=== PATIENT | male | born 1930 | race Caucasian/White ===

== ENCOUNTER 2020-02-17 13:51 | Observation (INO) ==
--- NOTE | 2020-02-17 14:39 | ERNOTE ---
Dyspnea - General Presenting Symptoms: shortness of breath Time Seen by Provider: 02/17/20 14:28 Source: patient, family Exam Limitations: no limitations - Immun/Allergies/Home Medications Immunizations: IMMUNIZATION HX Immunizations Up to Date Yes History of Influenza Vaccine Yes Hx Pneumococcal Vaccination Yes Allergies/Adverse Reactions: Allergies meperidine HCl [From Demerol] Adverse Reaction (Mild, Verified 02/17/20 14:10) Nausea Home Medications: HOME MEDICATIONS Tamsulosin HCl [Flomax] 0.4 mg PO QPM 12/25/14 [Last Taken Unknown] Acetaminophen [Tylenol] 650 mg PO Q4H PRN 06/26/17 [Last Taken Unknown] Aspirin [Children's Aspirin] 81 mg PO DAILY 06/26/17 [Last Taken Unknown] Beta-Carotene(A) W-C , E/Min [Ocuvite] 1 tab PO DAILY 06/26/17 [Last Taken Unknown] Furosemide [Lasix] 40 mg PO DAILY 08/15/17 [Last Taken Unknown] Lisinopril 2.5 mg PO DAILY 08/15/17 [Last Taken Unknown] Fexofenadine HCl 180 mg PO DAILY 11/01/19 [Last Taken Unknown] Metoprolol Tartrate [Lopressor] 25 mg PO DAILY 11/01/19 [Last Taken Unknown] Albuterol Sulfate [Proventil Hfa] 6.7 gm INHALATION DAILY 02/17/20 [Last Taken Unknown] Amoxicillin 1,000 mg PO TID 02/17/20 [Last Taken Unknown] Azithromycin 500 mg PO DAILY 02/17/20 [Last Taken Unknown] - History of Present Illness Narrative: Patient presents today for weakness and shortness of breath. He states he was in [facility] for for 5 days and was released 2 days ago but he believes that they released him too early. He is not sure of the details of his diagnosis or what they did to treat him. 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 Absent: fever ENT: Absent: nose congestion, nasal drainage Respiratory: Present: shortness of breath. Absent: cough Gastrointestinal/Abdominal: Absent: nausea, vomiting Medical History (Last Reviewed 02/17/20 @ 14:37 by Bo Flores DO) Afib Heart attack Hypertension Surgical History: Surgical History (Last Reviewed 02/17/20 @ 14:37 by Bo Flores DO) Hx of aortic valve replacement Hx of heart bypass surgery Family History: Family History (Last Updated 02/17/20 @ 15:24 by Nadira Sheppard RN) Other No pertinent family history Social History: (Last Reviewed 02/17/20 @ 14:37 by Bo Flores DO) Tobacco: Smoking Status: Former smoker Alcohol: alcohol intake: never Substance Use: substance use type: does not use Physical Exam - Physical Exam General Appearance: Present: wd/wn, alert, no apparent distress Head Exam: Present: normal inspection, no evidence of injury Eye Exam: Normal inspection: bilateral Neck: Present: normal inspection, nontender, supple Respiratory: Present: no respiratory distress, no accessory muscle use, lungs clear Cardiovascular/Chest: Present: irregularly irregular, systolic murmur - 3/5 Gastrointestinal/Abdominal: Present: normal bowel sounds, nontender, nondistended Back Exam: Present: normal inspection, normal range of motion Extremity Exam: Present: normal inspection, normal range of motion, pedal edema - mild Neurological Exam: Present: alert, normal mood/affect Skin Exam: Present: normal color, warm/dry Progress - Results and Orders Patient's Lab Results:: I have reviewed the patient's lab results. Results and Orders: Laboratory Tests 02/17/20 02/17/20 14:45 14:45 WBC 9.1 Hgb 11.3 L Hct 35.1 L Plt Count 363 Neutrophils % 75.5 H Sodium 135 Potassium 4.3 Chloride 102 Carbon Dioxide 23.0 L Anion Gap 14.3 H BUN 16 Creatinine 1.42 H Random Glucose 120 H Calcium 9.0 Total Bilirubin 0.5 AST 55 H ALT 48 Alkaline Phosphatase 153 Troponin I Less than 0.017 B-Natriuretic Peptide 12175 H Laboratory Tests 02/17/20 16:25 SARS-CoV-2 (PCR) Not detected - Vital Signs Patient's Vital Signs:: I have reviewed the patient's vital signs. Vital Signs: Vital Signs 02/17/20 13:55 Temperature 37.5 C Pulse Rate 90 Respiratory Rate 18 Blood Pressure 127/63 O2 Sat by Pulse Oximetry 96 - EKG EKG #1 EKG: NSR, premature ventricular contraction - frequent, nonspecific ST T wave changes, LVH EKG read: Interp. by me - X-Ray X-Ray #1 X-Ray: chest Interpretation: Reviewed by me X-ray Comments: IMPRESSION: 1. POOR INSPIRATION. 2. ENLARGED CARDIAC SILHOUETTE WITH VALVULAR PROSTHESIS. 3. CONSOLIDATION IN THE RIGHT MID TO LOWER LUNG ZONE AND LEFT LUNG BASE; ATELECTASIS VERSUS PNEUMONIA. Electronically signed by Jona Licea M.D.. - Progress/Reassessment Chief Complaint: Dyspnea Progress Note-Subjective: 02/17/20 16:[address] Sage he agrees with admission for IV diuresis. I spoke with the patient and his daughter and they agree with admission. Departure Clinical Impression: CHF (congestive heart failure) Qualifiers: Heart failure type: diastolic Heart failure chronicity: acute on chronic Qualified Code(s): I50.33 - Acute on chronic diastolic (congestive) heart failure - Departure Disposition: Still a patient Condition: Fair
[2020-02-17 14:54] LABS: Hematocrit 35.1 % (42.0-52.0); Hemoglobin 11.3 gm/dL (13.5-18.0); Mean Cell Volume 93.9 fl (78-100); Mean Corpuscular Hemoglobin 30.2 pg (27-31); Mean Corpuscular Hgb Conc 32.2 g/dl (32-36); Mean Platelet Volume 8.4 fl (8-11.3); Neutrophil # 6.8 K/mm3 (1.3-6.0); Neutrophil % 75.5 % (42-75.0); Platelet Count 363 K/mm3 (150-450); Red Blood Count 3.74 M/mm3 (4.7-6.0); Red Cell Distribution Width 13.2 % (11.5-14.0); White Blood Count 9.1 K/mm3 (4.0-10.5)
[2020-02-17 15:17] LABS: ALT 48 U/L (19-67); AST 55 U/L (0-48); Albumin * 2.8 gm/dl (3.4-5.0); Alkaline Phosphatase * 153 U/L (50-170); Anion Gap 14.3 mmol/L (6.8-13.8); BNP * 15079 pg/mL (5-650); BUN/Creatinine Ratio 11.3 (9.0-21.6); Bilirubin, Total 0.5 mg/dL (0.0-1.1); Blood Urea Nitrogen 16 mg/dL (6-23); Ca. Corrected For Albumin 9.6 mg/dL (8.4-10.2); Chloride 102 mmol/L (97-106); Glucose * 120 mg/dL (70-110); Potassium 4.3 mmol/L (3.4-4.6); Sodium 135 mmol/L (132-142)
[2020-02-17 15:23] LABS: Troponin I Less than 0.017 ng/mL (0.00-0.10)
[2020-02-17] MEDS ORDERED: FUROSEMIDE 10 MG/ML VIAL IV ONE (15:48)
[2020-02-18] MEDS ORDERED: FUROSEMIDE 10 MG/ML VIAL IV ONE (06:55)
[2020-02-18] MEDS ORDERED: ACETAMINOPHEN 325 MG TABLET PO PRN (06:55)
[2020-02-18] MEDS ORDERED: ALBUTEROL SULFATE 2.5 MG/0.5 ML VIAL.NEB IH PRN (06:55)
[2020-02-18] MEDS ORDERED: BETA-CAROTENE(A) W-C , E/MIN 1 TAB TABLET PO SCH (09:00)
[2020-02-18] MEDS ORDERED: AZITHROMYCIN 250 MG TABLET PO SCH (09:00)
[2020-02-18] MEDS ORDERED: ASPIRIN 81 MG TAB.CHEW PO SCH (09:00)
[2020-02-18] MEDS ORDERED: CEFDINIR 300 MG CAPSULE PO SCH (09:00)
[2020-02-18] MEDS ORDERED: LISINOPRIL 2.5 MG TABLET PO SCH (09:00)
[2020-02-18] MEDS ORDERED: LORATADINE 10 MG TABLET PO SCH (09:00)
[2020-02-18] MEDS ORDERED: METOPROLOL TARTRATE 25 MG TABLET PO SCH (09:00)
--- NOTE | 2020-02-18 10:20 | HP ---
Chief Complaint - Chief Complaint Date of Service: 02/18/20 Time of Service: 06:45 Chief Complaint: Shortness of breath History of Present Illness: Serg is an 89 yo male that was recently treated for pneumonia at [facility]. He was discharged a couple days ago but has been getting more short of breath. He denies fever. He reports he has still been taking his antibiotics he was given at discharge. In the ER chest xray showed CONSOLIDATION IN THE RIGHT MID TO LOWER LUNG ZONE AND LEFT LUNG BASE; ATELECTASIS VERSUS PNEUMONIA. His BNP was elevated at 15,000. His vitals were overall normal without hypoxia. WBC is normal. He was given 40mg IV lasix in the ER and reports he has been urinating more than usual overnight. Medical History (Last Reviewed 02/17/20 @ 19:34 by Carlita Bowling RN) Afib Heart attack Hypertension Surgical History: Surgical History (Last Reviewed 02/17/20 @ 19:34 by Carlita Bowling RN) Hx of aortic valve replacement Hx of heart bypass surgery Family History: Family History (Last Reviewed 02/17/20 @ 19:34 by Carlita Bowling RN) Other No pertinent family history Social History: (Last Reviewed 02/17/20 @ 19:34 by Carlita Bowling RN) Tobacco: Smoking Status: Former smoker Alcohol: alcohol intake: never Substance Use: substance use type: does not use Review Of Systems (GEN) - Review of Systems Generalized/Overall Review: Present: Weakness, Fatigue. Absent: Chills, Fever Respiratory: Present: Cough, Shortness of Breath Cardiac: Present: Edema. Absent: Chest Pain, Palpitations Abdominal: Absent: Nausea, Vomiting Genitourinary: Absent: Burning, Frequency Immunizations: IMMUNIZATION HX Immunizations Up to Date Yes History of Influenza Vaccine Yes Hx Pneumococcal Vaccination Yes Allergies/Adverse Reactions: Allergies Allergy/AdvReac Type Severity Reaction Status Date / Time meperidine HCl [From Demerol] AdvReac Mild Nausea Verified 02/17/20 14:10 Home Medications: HOME MEDICATIONS Tamsulosin HCl [Flomax] 0.4 mg PO QPM 12/25/14 [Last Taken Unknown] Acetaminophen [Tylenol] 650 mg PO Q4H PRN 06/26/17 [Last Taken Unknown] Aspirin [Children's Aspirin] 81 mg PO DAILY 06/26/17 [Last Taken Unknown] Furosemide [Lasix] 40 mg PO DAILY 05/02/18 [Last Taken Unknown] Lisinopril 2.5 mg PO DAILY 08/15/17 [Last Taken Unknown] Fexofenadine HCl 180 mg PO DAILY 11/01/19 [Last Taken Unknown] Metoprolol Tartrate [Lopressor] 25 mg PO DAILY 11/01/19 [Last Taken Unknown] Albuterol Sulfate [Proventil Hfa] 6.7 gm INHALATION DAILY 02/17/20 [Last Taken Unknown] Amoxicillin 1,000 mg PO TID 02/17/20 [Last Taken Unknown] Azithromycin 500 mg PO DAILY 02/17/20 [Last Taken Unknown] Beta-Carotene(A) W-C , E/Min [Ocuvite] 1 cap PO DAILY 02/17/20 [Last Taken Unknown] Pantoprazole Sodium 40 mg PO HS 02/17/20 [Last Taken Unknown] Exam - Exam Vital Signs: Vital Signs - Last Taken Temp 37.4 C 02/18/20 06:00 Pulse 93 02/18/20 09:11 Resp 20 02/18/20 06:00 BP 128/61 02/18/20 09:11 Pulse Ox 93 02/18/20 06:00 Constitutional: Present: Alert, Oriented x3, Cooperative ENT Exam: Present: hearing grossly normal Eye Exam: bilateral eye: normal inspection Respiratory: Present: lungs clear, normal breath sounds, no respiratory distress Cardiovascular/Chest: Present: regular rate, rhythm, edema - 1+ lower extremity edema Peripheral Pulses: radial (R): 2+, radial (L): 2+ Abdomen: Present: Normal bowel sounds, soft, nontender, nondistended, no rebound tenderness Skin Exam: Present: normal color, warm/dry, no cyanosis Appearance: Present: appropriate appearance, appropriate insight Eye contact: Present: cooperative, good eye contact, normal speech Diagnostic Studies: Abnormal Lab Results 02/17/20 02/17/20 Range/Units 14:45 14:45 RBC 3.74 L (4.7-6.0) M/mm3 Hgb 11.3 L (13.5-18.0) gm/dL Hct 35.1 L (42.0-52.0) % Immature Gran % (Auto) 0.90 H (0.001-0.429) % Immature Gran # (Auto) 0.08 H (0.000-0.0310) K/mm3 Neutrophils % 75.5 H (42-75.0) % Lymphocytes % 12.0 L (20-51) % Neutrophils # 6.8 H (1.3-6.0) K/mm3 Lymphocytes # 1.09 L (1.5-3.5) k/mm3 Carbon Dioxide 23.0 L (24-32.6) mmol/L Anion Gap 14.3 H (6.8-13.8) mmol/L Creatinine 1.42 H (0.4-1.4) mg/dL Est GFR (Non-Af Amer) 50 L D (60-130) mL/min Random Glucose 120 H (70-110) mg/dL AST 55 H (0-48) U/L B-Natriuretic Peptide 54551 H (5-650) pg/mL Albumin 2.8 L (3.4-5.0) gm/dl Laboratory Results WBC 9.1 K/mm3 (4.0-10.5) 02/17/20 14:45 RBC 3.74 M/mm3 (4.7-6.0) L 02/17/20 14:45 Hgb 11.3 gm/dL (13.5-18.0) L 02/17/20 14:45 Hct 35.1 % (42.0-52.0) L 02/17/20 14:45 MCV 93.9 fl (78-100) 02/17/20 14:45 MCH 30.2 pg (27-31) 02/17/20 14:45 MCHC 32.2 g/dl (32-36) 02/17/20 14:45 RDW 13.2 % (11.5-14.0) 02/17/20 14:45 Plt Count 363 K/mm3 (150-450) 02/17/20 14:45 MPV 8.4 fl (8-11.3) 02/17/20 14:45 Immature Gran % (Auto) 0.90 % (0.001-0.429) H 02/17/20 14:45 Immature Gran # (Auto) 0.08 K/mm3 (0.000-0.0310) H 02/17/20 14:45 Neutrophils % 75.5 % (42-75.0) H 02/17/20 14:45 Lymphocytes % 12.0 % (20-51) L 02/17/20 14:45 Monocytes % 8.4 % (0.0-9) 02/17/20 14:45 Eosinophils % 2.6 % (0.0-3.0) 02/17/20 14:45 Basophils % 0.6 % (0.0-1.0) 02/17/20 14:45 Nucleated RBC % 0.0 k/mm3 (0-1) 02/17/20 14:45 Neutrophils # 6.8 K/mm3 (1.3-6.0) H 02/17/20 14:45 Lymphocytes # 1.09 k/mm3 (1.5-3.5) L 02/17/20 14:45 Monocytes # 0.8 k/mm3 (0.0-1.0) 02/17/20 14:45 Eosinophils # 0.2 k/mm3 (0.0-0.7) 02/17/20 14:45 Absolute Basophils 0.1 k/mm3 (0.0-0.1) 02/17/20 14:45 Sodium 135 mmol/L (132-142) 02/17/20 14:45 Plasma Sodium 135 mmol/L (130-142) 02/17/20 14:45 Potassium 4.3 mmol/L (3.4-4.6) 02/17/20 14:45 Chloride 102 mmol/L (97-106) 02/17/20 14:45 Carbon Dioxide 23.0 mmol/L (24-32.6) L 02/17/20 14:45 Anion Gap 14.3 mmol/L (6.8-13.8) H 02/17/20 14:45 BUN 16 mg/dL (6-23) 02/17/20 14:45 Creatinine 1.42 mg/dL (0.4-1.4) H 02/17/20 14:45 Est GFR (Non-Af Amer) 50 mL/min (60-130) L D 02/17/20 14:45 BUN/Creatinine Ratio 11.3 (9.0-21.6) 02/17/20 14:45 Random Glucose 120 mg/dL (70-110) H 02/17/20 14:45 Calcium 9.0 mg/dL (7.9-10.9) 02/17/20 14:45 Calcium Adj for Albumin 9.6 mg/dL (8.4-10.2) 02/17/20 14:45 Total Bilirubin 0.5 mg/dL (0.0-1.1) 02/17/20 14:45 AST 55 U/L (0-48) H 02/17/20 14:45 ALT 48 U/L (19-67) 02/17/20 14:45 Alkaline Phosphatase 153 U/L (50-170) 02/17/20 14:45 Troponin I Less than 0.017 ng/mL (0.00-0.10) 02/17/20 14:45 B-Natriuretic Peptide 09831 pg/mL (5-650) H 02/17/20 14:45 Total Protein 7.0 gm/dL (6.2-8.2) 02/17/20 14:45 Albumin 2.8 gm/dl (3.4-5.0) L 02/17/20 14:45 SARS-CoV-2 (PCR) Not detected (NotDetected) 02/17/20 16:25 Assessment/Plan - Narrative Narrative: Serg is an 89 yo male with shortness of breath that has worsened after being discharged from [facility]. Chest xray shows pneumonia, but this can appear up on a chest xray after being treated for pneumonia for weeks. He clinically does not appear to be worsening from his pneumonia as he has a normal WBC and is afebrile. His BNP is quite elevated and he has had decreased activity due to his hospitalization, so I suspect acute on chronic diastolic CHF to be the more likely cause to his shortness of breath. He chronically takes lasix daily. Will treat with IV lasix. Will monitor respiratory status, but if not hypoxic should be able to discharge to home later. Will evaluate for weakness with PT eval. Will admit to observation and anticipate discharge to home later. - Assessment/Plan (1) Acute on chronic diastolic CHF (congestive heart failure) Problem: Acute (2) Community acquired pneumonia Problem: Acute
--- NOTE | 2020-02-18 16:09 | DS ---
(1) Acute on chronic diastolic CHF (congestive heart failure) Problem: Acute (2) Community acquired pneumonia Problem: Acute Qualifiers: Laterality: right Lung location: lower lobe of lung Qualified Code(s): J18.9 - Pneumonia, unspecified organism Date of Discharge:: 02/18/20 Hospital Course: Serg is an 89 yo male that was admitted for shortness of breath. He was recently admitted and treated for pneumonia, I believe this to be improving. However, I believe he developed an exacerbation of chronic diastolic CHF due to his inactivity and fluid retention. He was admitted to observation and diuresed. He had no hypoxic events. He had good urine output. His shortness of breath is improved. He will be discharged to home. Procedures Performed: none Results and Findings: Lab Pending Results 02/17/20 14:45: WBC 9.1, RBC 3.74 L, Hgb 11.3 L, Hct 35.1 L, MCV 93.9, MCH 30.2, MCHC 32.2, RDW 13.2, Plt Count 363, MPV 8.4, Immature Gran % (Auto) 0.90 H, Immature Gran # (Auto) 0.08 H, Neutrophils % 75.5 H, Lymphocytes % 12.0 L, Monocytes % 8.4, Eosinophils % 2.6, Basophils % 0.6, Nucleated RBC % 0.0, Neutrophils # 6.8 H, Lymphocytes # 1.09 L, Monocytes # 0.8, Eosinophils # 0.2, Absolute Basophils 0.1 02/17/20 14:45: Sodium 135, Plasma Sodium 135, Potassium 4.3, Chloride 102, Carbon Dioxide 23.0 L, Anion Gap 14.3 H, BUN 16, Creatinine 1.42 H, Est GFR (Non-Af Amer) 50 L D, BUN/Creatinine Ratio 11.3, Random Glucose 120 H, Calcium 9.0, Calcium Adj for Albumin 9.6, Total Bilirubin 0.5, AST 55 H, ALT 48, Alkaline Phosphatase 153, Troponin I Less than 0.017, B-Natriuretic Peptide 73485 H, Total Protein 7.0, Albumin 2.8 L 02/17/20 16:25: SARS-CoV-2 (PCR) Not detected Discharge Location: Home Disposition: Home self-care Condition: Fair Discharge Activity: Activity as tolerated Discharge Diet: Low salt Referrals: Ck Rojas MD [Primary Care Provider] - One Week Problem Oriented Discharge Instructions to Patient/Family: CHF Patient Instructions Complete Home Medications List: Complete Home Medication List: Tamsulosin HCl [Flomax] 0.4 mg PO QPM 12/25/14 Acetaminophen [Tylenol] 650 mg PO Q4H PRN 06/26/17 Aspirin 81 mg PO DAILY 06/26/17 Furosemide [Lasix] 40 mg PO DAILY 08/15/17 Lisinopril 2.5 mg PO DAILY 08/15/17 Fexofenadine HCl 180 mg PO DAILY 11/01/19 Metoprolol Tartrate [Lopressor] 25 mg PO DAILY 11/01/19 Albuterol Sulfate [Proventil Hfa] 6.7 gm INHALATION DAILY 02/17/20 Amoxicillin 1,000 mg PO TID 02/17/20 Azithromycin 500 mg PO DAILY 02/17/20 Beta-Carotene(A) W-C , E/Min [Ocuvite] 1 cap PO DAILY 02/17/20 Pantoprazole Sodium 40 mg PO HS 02/17/20
[2020-02-18] MEDS ORDERED: TAMSULOSIN HCL 0.4 MG CAP.SR.24H PO SCH (17:00)
[2020-02-18 17:17] VITALS: BP 146/64
[2020-02-18] MEDS ORDERED: PANTOPRAZOLE SODIUM 40 MG TABLET.EC PO SCH (21:00)
== END 2020-02-18 17:25 | disposition home or self-care (01) ==
LOC: MS 13:51 → ER 13:51 → MS 19:03
PROVIDERS: ADMIT Family Medicine; ATTEND Family Medicine
DX: R06.00 Dyspnea, unspecified; R53.1 Weakness; I50.33 Acute on chronic diastolic (congestive) heart failure; J18.9 Pneumonia, unspecified organism; Z87.891 Personal history of nicotine dependence